=== PATIENT | female | born 1965 | race Caucasian/White ===

== ENCOUNTER 2020-08-28 15:02 | Inpatient (IN) ==
[2020-08-28 15:42] LABS: Basophils # 0.1 K/mcL (0.0-0.2); Basophils % 1.2 %; Eosinophils # 0.5 K/mcL (0.0-0.6); Eosinophils % 6.4 %; Hematocrit 40.3 % (35.3-44.9); Hemoglobin 13.6 g/dL (11.5-15.4); Immature Granulocytes % 0.1 % (0-4); Lymphocytes # 2.5 K/mcL (0.6-4.6); Lymphocytes % 31.4 %; Mean Corpuscular HGB Conc 33.7 g/dL (31.6-35.5); Mean Corpuscular Hemoglobin 29.5 pg (28.0-33.3); Mean Corpuscular Volume 87.4 fL (83.0-100.0); Mean Platelet Volume 10.4 fL (9.4-12.4); Monocytes # 0.6 K/mcL (0.0-1.3); Monocytes % 6.9 %; Neutrophils # 4.4 K/mcL (1.6-8.9); Platelet Count 190 K/mcL (140-400); Red Blood Count 4.61 M/mcL (3.82-4.97); White Blood Count 8.1 K/mcL (4.3-11.1)
[2020-08-28 15:48] LABS: Bilirubin,Urine Negative (Negative); Blood,Urine Negative (Negative); Clarity,Urine Clear (Clear); Color,Urine Colorless (Yellow); Glucose,Urine (UA) Normal (Normal); Ketones,Urine Negative (Negative); Leukocyte Esterase,Urine Negative (Negative); Nitrite,Urine Negative (Negative); Protein,Urine Negative (Neg-Trace); Specific Gravity,Urine 1.008 (1.010-1.025); Urobilinogen,Urine Normal (Normal)
[2020-08-28 15:56] LABS: Amphetamine Screen,Urine Negative ng/mL (Cutoff=1000); Barbiturate Screen,Urine Negative ng/mL (Cutoff=200); Benzodiazepines Screen,Urine Positive ng/mL (Cutoff=200); Cannabinoid Screen,Urine Positive ng/mL (Cutoff = 50); Cocaine Screen,Urine Negative ng/mL (Cutoff= 300); Estimated Average Glucose 105 mg/dl; Opiate Screen,Urine Negative ng/mL (Cutoff=300); Phencyclidine Screen,Urine Negative ng/mL (Cutoff=25)
[2020-08-28 16:01] LABS: Acetaminophen < 10 mcg/mL (10-20); Alanine Aminotransferase 9 Units/L (7-52); Albumin 4.3 g/dL (3.5-5.7); Albumin/Globulin Ratio 1.4 (1.1-2.2); Alkaline Phosphatase 75 Units/L (34-104); Aspartate Amino Transferase 15 Units/L (13-39); BUN/Creatinine Ratio 20 (6-26); Bilirubin,Direct 0.1 mg/dL (0.0-0.2); Bilirubin,Indirect 0.3 mg/dL (0.0-1.0); Bilirubin,Total 0.4 mg/dL (0.3-1.0); Blood Urea Nitrogen 12 mg/dL (6-20); Calcium 8.6 mg/dL (8.6-10.3); Carbon Dioxide 24 mEq/L (23-29); Chloride 108 mEq/L (98-107); Chol/HDL Ratio 3.7 (0-4.9); Cholesterol 227 mg/dL (< 200); Ethanol < 10 mg/dL (Less than 10); Glucose 79 mg/dL (70-105); HDL Cholesterol 61 mg/dL (40-59); LDL Cholesterol,Calculated 127 mg/dL (< 100); Osmolality,Calculated 291 (280-300); Potassium 3.8 mEq/L (3.5-5.1); Salicylate < 2.5 mg/dL (15.0-30.0); Sodium 141 mEq/L (136-145); Total Protein 7.3 g/dL (6.4-8.9); Triglycerides 193 mg/dL (< 150); eGFR For African Americans > 60 (> 60); eGFR For Non-African Americans > 60 (> 60)
[2020-08-28] MEDS ORDERED: haloperidoL 5 MG TABLET PO PRN (18:10)
[2020-08-28] MEDS ORDERED: *HR* LORazepam 2 MG/ML VIAL IM PRN (18:10)
[2020-08-28] MEDS ORDERED: *HR* LORazepam 1 MG TABLET PO PRN (18:10)
[2020-08-28] MEDS ORDERED: MOM Conc 10 ML UD.LIQ PO PRN (18:10)
[2020-08-28] MEDS ORDERED: hydrOXYzine pamoate 25 MG CAPSULE PO PRN (18:10)
[2020-08-28] MEDS ORDERED: Mag Hydrox/Al Hydrox/Simeth 30 ML UDC PO PRN (18:10)
[2020-08-28] MEDS ORDERED: Haloperidol Lactate 5 MG/ML VIAL IM PRN (18:10)
[2020-08-28] MEDS: Acetaminophen 325 MG TABLET PO PRN (23:09)
[2020-08-28] MEDS: traZODone 50 MG TABLET PO PRN (23:09)
[2020-08-29] MEDS ORDERED: ALPRAZolam 0.5 MG TABLET PO PRN (11:24)
[2020-08-29] MEDS: BuPROPion XL (24 HR) 150 MG TABLET PO SCH (11:51)
[2020-08-29] MEDS: Acetaminophen 325 MG TABLET PO PRN (20:14)
[2020-08-29] MEDS: traZODone 50 MG TABLET PO PRN (20:15)
[2020-08-30 07:45] VITALS: BP 145/79
[2020-08-30] MEDS: BuPROPion XL (24 HR) 150 MG TABLET PO SCH (08:25)
[2020-08-30] MEDS ORDERED: Gabapentin 400 MG CAPSULE PO PRN ×2 (10:47→11:14)
[2020-08-30] MEDS: Acetaminophen 325 MG TABLET PO PRN (11:15)
== END 2020-08-30 14:35 | disposition home or self-care (01) | DRG 885 ==
LOC: EMEROOARM 15:02 → 1ANU 15:02
PROVIDERS: ADMIT Psychiatry & Neurology Psychiatry; ATTEND Psychiatry & Neurology Psychiatry

== ENCOUNTER 2020-12-25 13:51 | Observation (INO) ==
[2020-12-25] MEDS ORDERED: Perflutren Lipid Microsphere 1.3 ML in 0.9 % Sodium Chloride 8.7 ML IVP PRN (17:35)
[2020-12-25] MEDS ORDERED: Nitroglycerin 0.4 MG TAB.SUBL SL PRN (17:41)
[2020-12-25] MEDS ORDERED: Ondansetron 4 MG/2 ML VIAL IVP PRN (17:42)
[2020-12-25] MEDS ORDERED: Naloxone 0.4 MG/ML INJ IVP PRN (17:42)
[2020-12-25] MEDS ORDERED: Acetaminophen 325 MG TABLET PO PRN (17:42)
[2020-12-25] MEDS ORDERED: Morphine Sulfate 2 MG/ML SYRINGE IVP ONE (17:45)
[2020-12-25] MEDS: Famotidine 20 MG/2 ML VIAL IVP SCH (18:35)
[2020-12-25] MEDS: *HR* Heparin 5,000 UNIT/ML VIAL SQ SCH (20:53)
[2020-12-25] MEDS: Gabapentin 400 MG CAPSULE PO SCH (20:53)
[2020-12-25 21:34] LABS: Bilirubin,Urine Negative (Negative); Blood,Urine Negative (Negative); Clarity,Urine Clear (Clear); Color,Urine Light-Yellow (Yellow); Glucose,Urine (UA) Normal (Normal); Ketones,Urine Negative (Negative); Leukocyte Esterase,Urine Trace (Negative); Mucus,Urine Few per lpf (None-Few); Nitrite,Urine Negative (Negative); PH,Urine 5.5 pH Units (5.0-8.0); Protein,Urine Negative (Neg-Trace); RBC,Urine 0-3 per hpf (0-3); Specific Gravity,Urine > 1.030 (1.010-1.025); Squamous Epithelial Cell,Urine Few per hpf (None-Few); Urobilinogen,Urine Normal (Normal); WBC,Urine 0-3 per hpf (0-3)
[2020-12-26 03:04] LABS: Hematocrit 38.4 % (35.3-44.9); Hemoglobin 12.8 g/dL (11.5-15.4); Mean Corpuscular HGB Conc 33.3 g/dL (31.6-35.5); Mean Corpuscular Hemoglobin 29.9 pg (28.0-33.3); Mean Corpuscular Volume 89.7 fL (83.0-100.0); Mean Platelet Volume 10.1 fL (9.4-12.4); Platelet Count 191 K/mcL (140-400); Red Blood Count 4.28 M/mcL (3.82-4.97); Red Cell Distribution Width 12.9 % (11.5-14.5); White Blood Count 6.1 K/mcL (4.3-11.1)
[2020-12-26 03:29] LABS: BUN/Creatinine Ratio 24 (6-26); Blood Urea Nitrogen 19 mg/dL (6-20); Calcium 8.4 mg/dL (8.6-10.3); Carbon Dioxide 22 mEq/L (23-29); Chloride 110 mEq/L (98-107); Glucose 83 mg/dL (70-105); Magnesium 1.9 mg/dL (1.6-2.6); Osmolality,Calculated 289 (280-300); Potassium 3.9 mEq/L (3.5-5.1); Sodium 139 mEq/L (136-145); Troponin I 0.03 ng/mL (< 0.04); eGFR For African Americans > 60 (> 60); eGFR For Non-African Americans > 60 (> 60)
[2020-12-26 03:42] LABS: Estimated Average Glucose 91 mg/dl; Hemoglobin A1C 4.8 %
[2020-12-26] MEDS: Famotidine 20 MG/2 ML VIAL IVP SCH ×2 (05:56→18:14)
[2020-12-26] MEDS: *HR* Heparin 5,000 UNIT/ML VIAL SQ SCH ×3 (05:56→21:18)
[2020-12-26] MEDS ORDERED: Regadenoson 0.4 MG/5 ML SYRINGE IVP ONE (06:26)
[2020-12-26] MEDS: Aspirin Enteric Coated 81 MG Tablet PO SCH (09:43)
[2020-12-26] MEDS: Gabapentin 400 MG CAPSULE PO SCH ×2 (09:43→21:18)
[2020-12-26 10:26] LABS: Hepatitis B Surface Antigen Nonreactive (Nonreactive)
[2020-12-26 10:56] LABS: Hepatitis B Core IgM Nonreactive (Nonreactive)
[2020-12-26 10:58] LABS: Hepatitis A Antibody IgM Nonreactive (Nonreactive)
[2020-12-26 12:40] LABS: Hepatitis C Virus Antibody Reactive (Nonreactive)
[2020-12-26] MEDS: ALPRAZolam 1 MG TABLET PO PRN (15:10)
[2020-12-26] MEDS: hydrOXYzine pamoate 25 MG CAPSULE PO PRN (15:10)
[2020-12-26] MEDS: Topiramate 25 MG TABLET PO SCH (21:18)
[2020-12-26] MEDS ORDERED: Acetaminophen/Butalbital/CaffeineTABLET PO ONE (22:48)
[2020-12-27 03:02] LABS: Hematocrit 38.9 % (35.3-44.9); Hemoglobin 13.1 g/dL (11.5-15.4); Mean Corpuscular HGB Conc 33.7 g/dL (31.6-35.5); Mean Corpuscular Hemoglobin 30.1 pg (28.0-33.3); Mean Corpuscular Volume 89.4 fL (83.0-100.0); Mean Platelet Volume 10.4 fL (9.4-12.4); Platelet Count 198 K/mcL (140-400); Red Blood Count 4.35 M/mcL (3.82-4.97); Red Cell Distribution Width 12.4 % (11.5-14.5)
[2020-12-27 03:19] LABS: BUN/Creatinine Ratio 22 (6-26); Blood Urea Nitrogen 22 mg/dL (6-20); Calcium 8.9 mg/dL (8.6-10.3); Carbon Dioxide 25 mEq/L (23-29); Chloride 107 mEq/L (98-107); Glucose 92 mg/dL (70-105); Osmolality,Calculated 295 (280-300); Potassium 3.8 mEq/L (3.5-5.1); Sodium 141 mEq/L (136-145); eGFR For African Americans > 60 (> 60); eGFR For Non-African Americans 57 (> 60)
[2020-12-27] MEDS: Famotidine 20 MG/2 ML VIAL IVP SCH ×2 (05:24→17:22)
[2020-12-27] MEDS: *HR* Heparin 5,000 UNIT/ML VIAL SQ SCH ×3 (05:25→22:19)
[2020-12-27] MEDS ORDERED: Isosorbide MONOnitrate (24 HR) 30 MG TAB.ER.24H PO SCH (09:00)
[2020-12-27] MEDS ORDERED: lisinopriL 10 MG TABLET PO SCH (09:00)
[2020-12-27] MEDS: Gabapentin 400 MG CAPSULE PO SCH ×2 (09:59→22:19)
[2020-12-27] MEDS: Aspirin Enteric Coated 81 MG Tablet PO SCH (09:59)
[2020-12-27] MEDS: Topiramate 25 MG TABLET PO SCH ×2 (09:59→22:19)
[2020-12-27] MEDS ORDERED: 0.9 % Sodium Chloride 1,000 ML IVC SCH (10:15)
[2020-12-27] MEDS: cefTRIAXone 1,000 MG in Water for inj. (sterile) 10 ML IVP SCH (11:22)
[2020-12-27] MEDS: ALPRAZolam 1 MG TABLET PO PRN (14:41)
[2020-12-27] MEDS: hydrOXYzine pamoate 25 MG CAPSULE PO PRN (22:20)
[2020-12-28] MEDS: Famotidine 20 MG/2 ML VIAL IVP SCH (05:40)
[2020-12-28] MEDS: *HR* Heparin 5,000 UNIT/ML VIAL SQ SCH ×2 (05:41→14:58)
[2020-12-28 06:30] LABS: Hematocrit 37.2 % (35.3-44.9); Hemoglobin 12.8 g/dL (11.5-15.4); Mean Corpuscular HGB Conc 34.4 g/dL (31.6-35.5); Mean Corpuscular Hemoglobin 30.7 pg (28.0-33.3); Mean Corpuscular Volume 89.2 fL (83.0-100.0); Platelet Count 178 K/mcL (140-400); Red Blood Count 4.17 M/mcL (3.82-4.97); Red Cell Distribution Width 12.8 % (11.5-14.5); White Blood Count 5.8 K/mcL (4.3-11.1)
[2020-12-28 06:49] LABS: BUN/Creatinine Ratio 34 (6-26); Blood Urea Nitrogen 27 mg/dL (6-20); Calcium 8.4 mg/dL (8.6-10.3); Carbon Dioxide 22 mEq/L (23-29); Chloride 108 mEq/L (98-107); Glucose 88 mg/dL (70-105); Osmolality,Calculated 291 (280-300); Potassium 3.8 mEq/L (3.5-5.1); Sodium 138 mEq/L (136-145); eGFR For African Americans > 60 (> 60); eGFR For Non-African Americans > 60 (> 60)
[2020-12-28] MEDS: cefTRIAXone 1,000 MG in Water for inj. (sterile) 10 ML IVP SCH (08:47)
[2020-12-28] MEDS: Topiramate 25 MG TABLET PO SCH (08:48)
[2020-12-28] MEDS: Gabapentin 400 MG CAPSULE PO SCH (08:48)
[2020-12-28] MEDS: Aspirin Enteric Coated 81 MG Tablet PO SCH (08:48)
[2020-12-28] MEDS: ALPRAZolam 1 MG TABLET PO PRN (10:06)
[2020-12-28 14:44] VITALS: BP 95/64
[2020-12-28] MEDS ORDERED: Famotidine 20 MG TABLET PO SCH (21:00)
== END 2020-12-28 17:31 | disposition home or self-care (01) ==
LOC: 3BNU
PROVIDERS: ADMIT Internal Medicine; ATTEND Internal Medicine